=== PATIENT | female | born 1985 | race Caucasian/White ===

== ENCOUNTER 2021-01-09 15:14 | Outpatient (CLI) | payer MEDICARE, SELFPAY ==
--- NOTE | ~2021-01-09 | CT_ITS ---
EXAMINATION: CT abdomen pelvis w con DATE: 01/09/2021 15:53 INDICATION: Lower abdominal pain. Nausea. TECHNIQUE: Computed tomography (CT) of the abdomen and pelvis was performed with 100 cc Omnipaque 350 intravenous contrast. Automated exposure control and iterative reconstruction technique were employe d. Exam dose: 687.34 mGy-cm total exam DLP. COMPARISON: None. FINDINGS: The lung bases are clear of consolidation. Normal heart size. No pericardial or pleural eff usion. Diffuse hepatic steatosis. No hepatic space-occupying mass lesion is evident. The gallbladder is pres ent. No pericholecystic fluid or fat stranding. No bile duct or pancreatic duct dilatation. No pancre atic mass lesion. A punctate calcification of the pancreatic head may indicate mild chronic pancreati tis. Splenic size is within normal range. Normal morphology of the adrenal glands. No renal mass lesion or urinary tract calculus or hydroureteronephrosis. The urinary bladder is unrem arkable. There is an IUD within the uterus. The adnexal areas are unremarkable. Normal caliber of the abdominal aorta with mild atherosclerotic calcification. No intraperitoneal or retroperitoneal or pelvic mass lesion or adenopathy or ascites. Normal appendix. No bowel obstruction, bowel wall thickening, pneumatosis or intraperitoneal free air. Included skeletal structures are unremarkable. IMPRESSION: Diffuse hepatic steatosis Mild chronic pancreatitis is suggested Normal appendix IUD within uterus Reviewed, dictated and finalized at [facility]. Reviewed, dictated and finalized at [facility].
[2021-01-09 15:44] LABS: Estimated Glomerular Filt Rate > 60
== END 2021-01-09 15:15 ==
DX: R10.9 Unspecified abdominal pain (principal); K76.0 Fatty (change of) liver, not elsewhere classified; Z97.5 Presence of (intrauterine) contraceptive device
CPT/HCPCS: 74177; Q9967